=== PATIENT | male | born 1970 | race African-American/Black ===

== ENCOUNTER 2024-07-11 12:38 | Inpatient (IN) | payer MEDICAID, OTHER ==
[~2024-07-11] VITALS: Ht 182.9 cm; Wt 105.2 kg
[~2024-07-11 12:38] MED LIST: HYDR50TA40 MT; NIFE-49 MT
[2024-07-11 13:42] LABS: CHLORIDE 110 mEq/L (98-107); POTASSIUM 4.7 mEq/L (3.5-5.1); SODIUM 140 mEq/L (136-145)
[2024-07-11 13:43] LABS: CALCIUM 10.1 mg/dL (8.7-10.4); CARBON DIOXIDE 23 mEq/L (21-32)
[2024-07-11 13:46] LABS: BASOPHILS % 0.7 % (0.0-2.0); EOSINOPHILS % 2.4 % (0.0-5.0); HEMATOCRIT. 42.4 % (42.0-52.0); HEMOGLOBIN. 13.7 g/dL (14.0-18.0); LYMPHOCYTES % 17.8 % (20.0-50.0); MEAN CORPUSCULAR HEMOGLOBIN 29.7 pg (28.0-32.0); MEAN CORPUSCULAR HGB CONC 32.3 g/dL (31.0-37.0); MEAN CORPUSCULAR VOLUME 91.7 fL (80.0-94.0); MEAN PLATELET VOLUME 8.2 fl (7.4-10.4); MONOCYTES % 7.5 % (2.0-8.0); NEUTROPHILS % 71.6 % (40.0-76.0); PLATELET 226 x1000/uL (130-400); RED BLOOD CELL COUNT 4.63 mill/uL (4.7-6.1); RED CELL DISTRIBUTION WIDTH 16.1 % (11.6-14.6); WHITE BLOOD COUNT 8.8 x1000/uL (4.5-11.0)
[2024-07-11 13:48] LABS: GLUCOSE 87 mg/dL (70-105); UREA NITROGEN BLOOD 45 mg/dL (9-23)
[2024-07-11 13:50] LABS: ALANINE AMINOTRANSFERASE 30 IU/L (10-49); ALBUMIN 4.5 g/dL (3.2-4.8); ASPARTATE AMINOTRANSFERASE 19 IU/L (<34); BILIRUBIN TOTAL 0.5 mg/dL (0.1-1.0); PHOSPHORUS 3.6 mg/dL (2.5-4.9); PROTEIN TOTAL 7.9 g/dL (6.0-8.3)
[2024-07-11 13:52] LABS: CREATININE 5.5 mg/dL (0.6-1.3)
[2024-07-11] MEDS: LABETALOL 5MG/ML 4ML INJ IV ONE (14:39)
[2024-07-11] MEDS ORDERED: DEXTROSE 50% WATER 50ML SYRINGE IV PRN (17:00)
[2024-07-11] MEDS: BLOOD SUGAR DIAGNOSTIC STRIP TEST SCH (17:00)
[2024-07-11] MEDS ORDERED: ONDANSETRON HCL 4MG/2ML INJ IV PRN (17:00)
[2024-07-11] MEDS ORDERED: IPRATROPIUM/ALBUTEROL 0.5-3(2.5)MG/3ML NEB HHN PRN (17:00)
[2024-07-11] MEDS ORDERED: NITROGLYCERIN 0.4MG TABLET SL SL PRN (17:30)
[2024-07-11 17:47] VITALS: BP 237/135; PULSE 84; RESP 16; TEMP 36.6; O2SAT 95
[2024-07-11 18:00] VITALS: BP 237/135; PULSE 84; RESP 16; TEMP 36.5
[2024-07-11] MEDS: NITROGLYCERIN 0.4MG TABLET SL SL NR (18:09)
[2024-07-11] MEDS: HYDRALAZINE HCL 50MG TABLET PO SCH (18:09)
[2024-07-11 18:20] VITALS: BP 236/132; PULSE 77; RESP 16; TEMP 36.6; O2SAT 95
[2024-07-11] MEDS: NITROGLYCERIN OINT 1GM/INCH UDPKT TD NR (19:35)
[2024-07-11 19:49] LABS: IRON 99 ug/dL (65-175)
[2024-07-11 19:52] LABS: TOTAL IRON BINDING CAPACITY 440 ug/dl (250-425)
[2024-07-11 19:55] LABS: FERRITIN 38 ng/mL (22-322); VITAMIN B12 SERUM 609 pg/mL (211-911)
[2024-07-11 19:56] VITALS: BP 182/110; PULSE 85; RESP 19; TEMP 37; O2SAT 96
[2024-07-11 19:56] LABS: FOLIC ACID (FOLATE) SERUM > 20.00 ng/mL (>5.38)
[2024-07-11] MEDS: HYDRALAZINE 20MG/ML VIAL IV PRN (21:58)
[2024-07-12] VITALS (11 sets, daily range): BP systolic 162–206; BP diastolic 89–162; PULSE 112–140; RESP 16–22; TEMP 36.3–36.78072; O2SAT 96–99
[2024-07-12] MEDS: CLONIDINE 0.1MG TABLET PO NR (01:13)
[2024-07-12 05:08] LABS: CLARITY URINE CLEAR (CLEAR); COLOR URINE YELLOW (YELLOW); GLUCOSE URINE NEGATIVE (NEGATIVE); KETONES URINE NEGATIVE (NEGATIVE); LEUKOCYTE ESTERASE URINE NEGATIVE (NEGATIVE); NITRITE URINE NEGATIVE (NEGATIVE); OCCULT BLOOD URINE NEGATIVE (NEGATIVE); PROTEIN URINE 3+ (NEGATIVE); SPECIFIC GRAVITY URINE 1.015 (1.005-1.030); UROBILINOGEN URINE 0.2 E.U./dL (0.2-1.0)
[2024-07-12 05:23] LABS: *AMPHETAMINES SCREEN URINE NEGATIVE (NEGATIVE); *BARBITURATES SCREEN URINE NEGATIVE (NEGATIVE); *BENZODIAZEPINES SCREEN URINE NEGATIVE (NEGATIVE); *COCAINE SCREEN URINE NEGATIVE (NEGATIVE)
[2024-07-12 05:24] LABS: CANNABINOID URINE SCREEN PRESUMPTIVE POSITIVE (NEGATIVE); ECSTASY MDMA SCREEN URINE NEGATIVE (NEGATIVE); METHADONE URINE SCREEN NEGATIVE (NEGATIVE); OPIATES URINE SCREEN NEGATIVE (NEGATIVE); PHENCYCLIDINE URINE SCREEN NEGATIVE (NEGATIVE)
[2024-07-12 06:18] LABS: CHLORIDE 107 mEq/L (98-107); POTASSIUM 4.6 mEq/L (3.5-5.1); SODIUM 139 mEq/L (136-145)
[2024-07-12 06:19] LABS: CALCIUM 9.7 mg/dL (8.7-10.4); CARBON DIOXIDE 18 mEq/L (21-32)
[2024-07-12 06:22] LABS: TRIGLYCERIDE 123 mg/dL (0-150)
[2024-07-12 06:24] LABS: GLUCOSE 126 mg/dL (70-105); UREA NITROGEN BLOOD 49 mg/dL (9-23)
[2024-07-12 06:25] LABS: ALANINE AMINOTRANSFERASE 24 IU/L (10-49); ALBUMIN 4.1 g/dL (3.2-4.8); LDL CHOLESTEROL 157 mg/dL (5-100); T4 FREE 1.27 ng/dL (0.89-1.76); THYROID STIMULATING HORMONE 0.49 uIU/mL (0.55-4.78)
[2024-07-12 06:26] LABS: ASPARTATE AMINOTRANSFERASE 16 IU/L (<34); BILIRUBIN TOTAL 0.4 mg/dL (0.1-1.0); CHOLESTEROL 261 mg/dL (<200); HDL CHOLESTEROL 74 mg/dL (>55); PROTEIN TOTAL 7.3 g/dL (6.0-8.3)
[2024-07-12 06:28] LABS: BASOPHILS % 0.7 % (0.0-2.0); HEMATOCRIT. 39.7 % (42.0-52.0); LYMPHOCYTES % 14.5 % (20.0-50.0); MEAN CORPUSCULAR HEMOGLOBIN 30.2 pg (28.0-32.0); MEAN CORPUSCULAR HGB CONC 32.7 g/dL (31.0-37.0); MEAN CORPUSCULAR VOLUME 92.3 fL (80.0-94.0); MEAN PLATELET VOLUME 8.6 fl (7.4-10.4); MONOCYTES % 9.2 % (2.0-8.0); NEUTROPHILS % 73.6 % (40.0-76.0); PLATELET 212 x1000/uL (130-400); RED CELL DISTRIBUTION WIDTH 15.8 % (11.6-14.6); WHITE BLOOD COUNT 8.2 x1000/uL (4.5-11.0)
[2024-07-12 06:31] LABS: BILIRUBIN DIRECT < 0.1 mg/dL (<=3.0); CREATININE 5.8 mg/dL (0.6-1.3)
[2024-07-12] MEDS: CLONIDINE 0.1MG TABLET PO SCH (06:46)
[2024-07-12 07:32] LABS: SQUAMOUS EPITHELIAL CELL URINE 1+ /lpf (RARE/1+)
[2024-07-12 07:33] LABS: MUCUS URINE 2+ /lpf (NONE/TRACE)
[2024-07-12 07:34] LABS: COARSE GRANULAR CASTS URINE 0-5 /lpf; HYALINE CASTS URINE 0-5 /lpf
[2024-07-12 07:35] LABS: RBC URINE 0-2 /hpf (0-2)
[2024-07-12 07:37] LABS: BACTERIA URINE TRACE
[2024-07-12] MEDS: FAMOTIDINE 20MG/2ML VIAL IV SCH (08:12)
[2024-07-12] MEDS: NIFEDIPINE XL 60MG TAB PO SCH (08:12)
[2024-07-12] MEDS: CLONIDINE 0.2MG TABLET PO SCH (13:59)
[2024-07-12] MEDS: HYDRALAZINE HCL 50MG TABLET PO SCH (15:22)
[2024-07-12] MEDS ORDERED: LIDOCAINE HCL 1% 10 MG/ML 10ML VIAL ONE (15:22)
[2024-07-12] MEDS: ALTEPLASE 2MG/VIAL ITC NR ×2 (17:43→21:53)
[2024-07-12 17:52] LABS: PARTIAL THROMBOPLASTIN TIME 58.9 sec (23.4-31.0); PROTHROMBIN TIME 11.1 sec (9.6-11.0)
[2024-07-12 18:22] LABS: HEPATITIS B SURFACE ANTIGEN NEGATIVE (Negative)
[2024-07-12 18:38] LABS: HEPATITIS A AB IGM NEGATIVE (Negative)
[2024-07-12 18:39] LABS: HEPATITIS B CORE AB IGM NEGATIVE (Negative); HEPATITIS C AB NON REACTIVE (Neg) (Negative)
[2024-07-12 22:33] LABS: PHOSPHORUS 3.4 mg/dL (2.5-4.9)
[2024-07-12] MEDS: ATORVASTATIN CALCIUM 40MG TABLET PO SCH (22:50)
[2024-07-12] MEDS: METOPROLOL TARTRATE 50MG TABLET PO SCH (22:51)
[2024-07-13] VITALS (23 sets, daily range): BP systolic 132–169; BP diastolic 86–110; PULSE 67–93; RESP 10–20; TEMP 36.2–37.16964; O2SAT 92–100
[2024-07-13] MEDS: CALCIUM ACETATE 667MG CAPSULE PO SCH (07:15)
[2024-07-13] MEDS ORDERED: CEFAZOLIN 1000MG PREMIX 50 ML IV ONE (07:36)
[2024-07-13] MEDS ORDERED: FENTANYL CITRATE/PF 50MCG/ML 2ML VIAL ONE (07:36)
[2024-07-13] MEDS ORDERED: HEPARIN 1000 UNITS/ML 10ML ONE (07:38)
[2024-07-13] MEDS ORDERED: LIDOCAINE HCL 1% 10 MG/ML 10ML VIAL ONE ×2 (07:38→08:05)
[2024-07-13] MEDS: CEFAZOLIN SODIUM 1000MG/VIAL IM ONE (07:48)
[2024-07-13] MEDS: FENTANYL CITRATE/PF 50MCG/ML 2ML VIAL IV ONE (07:55)
[2024-07-13] MEDS ORDERED: IOHEXOL-300 50 ML BOTTLE IV ONE (08:01)
[2024-07-13 08:16] LABS: POTASSIUM 4.5 mEq/L (3.5-5.1)
[2024-07-13 08:17] LABS: CALCIUM 9.5 mg/dL (8.7-10.4)
[2024-07-13 08:39] LABS: CREATININE 5.3 mg/dL (0.6-1.3)
[2024-07-13 08:41] LABS: BASOPHILS % 0.6 % (0.0-2.0); EOSINOPHILS % 1.9 % (0.0-5.0); HEMOGLOBIN. 12.8 g/dL (14.0-18.0); LYMPHOCYTES % 14.8 % (20.0-50.0); MEAN CORPUSCULAR HEMOGLOBIN 29.9 pg (28.0-32.0); MEAN CORPUSCULAR HGB CONC 32.7 g/dL (31.0-37.0); MEAN CORPUSCULAR VOLUME 91.3 fL (80.0-94.0); MONOCYTES % 10.3 % (2.0-8.0); NEUTROPHILS % 72.4 % (40.0-76.0); RED BLOOD CELL COUNT 4.28 mill/uL (4.7-6.1); RED CELL DISTRIBUTION WIDTH 15.7 % (11.6-14.6); WHITE BLOOD COUNT 8.4 x1000/uL (4.5-11.0)
[2024-07-13 09:16] LABS: DIFFERENTIAL COMMENT 1
[2024-07-13] MEDS: FOLIC ACID/VITAMIN B COMP W-C TABLET PO SCH (09:17)
[2024-07-13 11:01] LABS: PLATELET 199 x1000/uL (130-400)
[2024-07-13] MEDS: FUROSEMIDE 40MG TABLET PO SCH (17:50)
[2024-07-13] MEDS ORDERED: ALTEPLASE 2MG/VIAL ITC NR ×3 (18:00)
[2024-07-13] MEDS: ACETAMINOPHEN 325MG TABLET PO PRN (21:21)
[2024-07-14] VITALS (7 sets, daily range): BP systolic 109–135; BP diastolic 64–96; PULSE 64–98; RESP 18–21; TEMP 35.9–36.4; O2SAT 97–99
[2024-07-14 09:29] LABS: BASOPHILS % 0.8 % (0.0-2.0); EOSINOPHILS % 2.4 % (0.0-5.0); HEMOGLOBIN. 13.5 g/dL (14.0-18.0); LYMPHOCYTES % 11.6 % (20.0-50.0); MEAN CORPUSCULAR HGB CONC 32.3 g/dL (31.0-37.0); MEAN PLATELET VOLUME 8.8 fl (7.4-10.4); MONOCYTES % 10.4 % (2.0-8.0); NEUTROPHILS % 74.8 % (40.0-76.0); PLATELET 167 x1000/uL (130-400); RED BLOOD CELL COUNT 4.51 mill/uL (4.7-6.1); WHITE BLOOD COUNT 9.6 x1000/uL (4.5-11.0)
[2024-07-14 09:35] LABS: POTASSIUM 4.6 mEq/L (3.5-5.1)
[2024-07-14 09:36] LABS: CALCIUM 9.5 mg/dL (8.7-10.4)
[2024-07-14 09:42] LABS: CREATININE 5.7 mg/dL (0.6-1.3)
[2024-07-14] MEDS ORDERED: TOPUD MT (11:27)
[2024-07-14] MEDS ORDERED: METO-539 PO (11:27)
[2024-07-14] MEDS ORDERED: FURO40TA5 PO (11:27)
[2024-07-14] MEDS ORDERED: LIP40 PO (11:30)
== END 2024-07-14 16:15 | disposition home or self-care (01) | DRG 466 ==
LOC: ER 12:38 → 6WST 16:42 → EDBEDREQ 16:46 → EDBEDREQSVC 16:46 → EDBEDREQTM 16:46
PROVIDERS: ADMIT Internal Medicine; ATTEND Internal Medicine
PROC: 02H633Z Insertion of Infusion Device into Right Atrium, Percutaneous Approach (ICD-10-PCS; principal; 2024-07-12)
PROC: B548ZZA Ultrasonography of Superior Vena Cava, Guidance (ICD-10-PCS; 2024-07-12)
PROC: 5A1D70Z Performance of Urinary Filtration, Intermittent, Less than 6 Hours Per Day (ICD-10-PCS; 2024-07-12)
PROC: 02PAX3Z Removal of Infusion Device from Heart, External Approach (ICD-10-PCS; 2024-07-13)
PROC: 02HV33Z Insertion of Infusion Device into Superior Vena Cava, Percutaneous Approach (ICD-10-PCS; 2024-07-13)
PROC: 0JH63XZ Insertion of Tunneled Vascular Access Device into Chest Subcutaneous Tissue and Fascia, Percutaneous Approach (ICD-10-PCS; 2024-07-13)
PROC: B5181ZA Fluoroscopy of Superior Vena Cava using Low Osmolar Contrast, Guidance (ICD-10-PCS; 2024-07-13)
PROC: 5A1D70Z Performance of Urinary Filtration, Intermittent, Less than 6 Hours Per Day (ICD-10-PCS; 2024-07-13)
DX: T82.49XA Other complication of vascular dialysis catheter, initial encounter (principal); N18.6 End stage renal disease; I13.2 Hypertensive heart and chronic kidney disease with heart failure and with stage 5 chronic kidney disease, or end stage renal disease; D63.1 Anemia in chronic kidney disease; R73.03 Prediabetes; E78.5 Hyperlipidemia, unspecified; I50.32 Chronic diastolic (congestive) heart failure; I16.0 Hypertensive urgency; J44.9 Chronic obstructive pulmonary disease, unspecified; Z99.2 Dependence on renal dialysis; Z91.199 Patient's noncompliance with other medical treatment and regimen due to unspecified reason; Z59.00 Homelessness unspecified; Z91.158 Patient's noncompliance with renal dialysis for other reason; Y71.2 Prosthetic and other implants, materials and accessory cardiovascular devices associated with adverse incidents; Y92.89 Other specified places as the place of occurrence of the external cause
CPT/HCPCS: 36415; 36556; 36558; 71045; 76937; 77001; 80048; 80053; 80061; 80076; 80305; 81003; 82607; 82728; 82746; 82962; 83036; 83540; 83550; 83735; 84100; 84439; 84443; 85025; 86705; 86709; 87340; 90935; 93005; 97162; 97166; 99152; 99153; 99285; C1750; C1752; J0360; J0690; J1642; J1644; J2003; J2997; J3010; J3490; Q9967; G0500